=== PATIENT | male | born 1950 | race Caucasian/White ===

== ENCOUNTER → 2021-08-19 | Outpatient (CLI) | payer OTHER ==
[~2021-08-19] MED LIST: ASPIRIN EC81 MG PO; CELEBREX200 MG PO; HYDROCODON-ACE1 EAC2 PO; LANSOPRAZOLE30 MG PO; LATANOPROST 0.7.5 ML OU; NEURONTIN300 MG PO; STOOL SOFTENER100 MG PO; XYZAL5 MG PO
[2021-08-19 12:05] LABS: BUN/CREATININE RATIO 15 (0-10)
== END ==
LOC: LAB 11:10
PROVIDERS: Orthopaedic Surgery
DX: Z01.812 Encounter for preprocedural laboratory examination (principal)
CPT/HCPCS: 36415; 80048; 86850; 86900; 86901

== ENCOUNTER 2021-08-20 05:00 | Day surgery (SDC) | payer OTHER ==
[~2021-08-20] VITALS: Ht 182.9 cm; Wt 112.5 kg
[~2021-08-20 05:00] MED LIST changes: -ASPIRIN EC81 MG PO; -HYDROCODON-ACE1 EAC2 PO
[2021-08-20] MEDS ORDERED: HYDROCODON-ACE1 EAC2 PO (10:23)
[2021-08-21] MEDS ORDERED: ASPIRIN EC81 MG PO (12:36)
== END 2021-08-21 15:36 | disposition home or self-care (01) ==
LOC: OR 05:00 → M/S 05:00 → EDSTATUS 07:45 → M/S 10:40 → OR 08-21 15:36
DX: M17.12 Unilateral primary osteoarthritis, left knee (principal); G89.29 Other chronic pain; K21.9 Gastro-esophageal reflux disease without esophagitis; C80.1 Malignant (primary) neoplasm, unspecified; I67.1 Cerebral aneurysm, nonruptured; Z79.1 Long term (current) use of non-steroidal anti-inflammatories (NSAID); Z79.899 Other long term (current) drug therapy
CPT/HCPCS: 73560; 97116-GP-CQ; 97161; 97165; 97530-GP-CQ; 97535; C1713; C1776; J0171; J0690; J1170; J2001; J2250; J2704; J2795; J3010; J3370; J7120

== ENCOUNTER → 2021-09-04 | Outpatient (CLI) | payer OTHER ==
[~2021-09-04] MED LIST changes: +ASPIRIN EC81 MG PO; +HYDROCODON-ACE1 EAC2 PO
== END ==
LOC: US 10:39
DX: R22.42 Localized swelling, mass and lump, left lower limb (principal); Z96.653 Presence of artificial knee joint, bilateral; I82.409 Acute embolism and thrombosis of unspecified deep veins of unspecified lower extremity
CPT/HCPCS: 93971